=== PATIENT | male | born 1940 | race Caucasian/White ===

== ENCOUNTER 2017-09-12 19:49 | Emergency (ER) | payer MEDICARE, BC ==
[2017-09-12] MEDS ORDERED: 0.9 % SODIUM CHLORIDE 1,000 ML BAG IV ONE (19:57)
--- NOTE | 2017-09-12 20:00 | Emergency Department Record ---
History of Present Illness - General Chief Complaint: Fever Stated Complaint: FEVER Time Seen by Provider: 09/12/17 19:54 Source: Patient, EMS - History of Present Illness Initial Comments: Three days of fever, malaise, weakness with sore throat and some coughing. He is non-ambulatory at baseline and lives at home with his familly per EMS history. He has a history of COPD NOT on oxygen. 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 MD Complaint: Fever, Malaise, Weakness - Related Data Allergies Allergy/AdvReac Type Severity Reaction Status Date / Time No Known Drug Allergies Allergy Verified 05/01/16 16:17 Review of Systems Reviewed: No additional complaints except as noted below Constitutional: Reports: As per HPI. Denies: Chills, Fever, Malaise, Night sweats, Weakness, Weight change Eyes: Reports: As per HPI. Denies: Eye discharge, Eye pain, Photophobia, Vision change ENT: Reports: As per HPI. Denies: Congestion, Dental pain, Ear pain, Epistaxis , Hearing loss, Throat pain Respiratory: Reports: As per HPI. Denies: Cough, Dyspnea, Hemoptysis, Stridor, Wheezes Cardiovascular: Reports: As per HPI. Denies: Arrhythmia, Chest pain, Dyspnea on exertion, Edema, Murmurs, Orthopnea, Palpitations, Paroxysmal nocturnal dyspnea, Rheumatic Fever, Syncope Endocrine: Reports: As per HPI. Denies: Fatigue, Heat or cold intolerance, Polydipsia, Polyuria Gastrointestinal: Reports: As per HPI. Denies: Abdominal pain, Constipation, Diarrhea, Hematemesis, Hematochezia, Melena, Nausea, Vomiting Genitourinary: Reports: As per HPI. Denies: Dysuria, Frequency, Hematuria, Incontinence, Retention, Testicular pain, Testicular mass, Urgency Musculoskeletal: Reports: As per HPI. Denies: Arthralgia, Back pain, Gout, Joint swelling, Myalgia, Neck pain Skin: Reports: As per HPI. Denies: Bruising, Change in color, Change in hair/ nails, Lesions, Pruritus, Rash Neurological: Reports: As per HPI. Denies: Abnormal gait, Confusion, Headache, Numbness, Paresthesias, Seizure, Tingling, Tremors, Vertigo, Weakness Psychiatric: Reports: As per HPI. Denies: Anxiety, Auditory hallucinations, Depression, Homicidal thoughts, Suicidal thoughts, Visual hallucinations Hematological/Lymphatic: Reports: As per HPI. Denies: Anemia, Blood Clots, Easy bleeding, Easy bruising, Swollen glands Past Medical History - SOCIAL HISTORY Smoking Status: Former smoker Drug Use: None - RESPIRATORY Hx Bronchitis: Yes Hx COPD: Yes Hx Pneumonia: Yes - CARDIOVASCULAR Hx Cardio Disorders: No - NEURO Hx Neuro Disorders: Yes Hx CVA: Yes (2012, wheeel chair bound) Hx Parkinson's Disease: Yes Comment:: pt with trmmor - GI Hx GI Disorders: Yes Hx Reflux: Yes Hx Ulcer: Yes (recent admission) - Hx Genitourinary Disorders: No - ENDOCRINE Hx Endocrine Disorders: No - MUSCULOSKELETAL Hx Musculoskeletal Disorders: Yes Comment:: paralyzed from CVA - PSYCH Hx Psych Problems: No - HEMATOLOGY/ONCOLOGY Hx Hematology/Oncology Disorders: No Physical Exam - General General Appearance: Alert, Oriented x3, Cooperative, Mild distress (repeated coughing/ gargling while answering our questions, fine resting tremor, not new per EMS.) - Head Head exam: Normal inspection - Eye Eye exam: Normal appearance, PERRL, EOMI. negative: Nystagmus Pupils: Normal accommodation - ENT ENT exam: Normal exam, Mucous membranes moist, Normal external ear exam, Normal orophraynx, TM's normal bilaterally Ear exam: Normal external inspection. negative: External canal tenderness Nasal Exam: Normal inspection. negative: Discharge, Sinus tenderness Mouth exam: Normal external inspection, Tongue normal Teeth exam: Normal inspection. negative: Dental caries Throat exam: Normal inspection. negative: Tonsillar erythema, Tonsillar exudate - Neck Neck exam: Normal inspection, Full ROM. negative: Lymphadenopathy, Meningismus , Tenderness - Respiratory Respiratory exam: Decreased breath sounds, Prolonged expiratory, Rales (Fine rales at bases right greter than left.). negative: Respiratory distress - Cardiovascular Cardiovascular Exam: Normal rhythm, Normal heart sounds, Tachycardia - GI/Abdominal GI/Abdominal exam: Soft, Normal bowel sounds. negative: Tenderness - Rectal Rectal exam: Deferred - exam: Deferred - Extremities Extremities exam: Normal inspection, Full ROM, Normal capillary refill. negative: Calf tenderness, Pedal edema, Tenderness - Back Back exam: Reports: Normal inspection, Full ROM. Denies: CVA tenderness (R), CVA tenderness (L), Muscle spasm, Rash noted, Tenderness - Neurological Neurological exam: Alert, CN II-XII intact (mild facial droop, chronic), Motor sensory deficit (motor weakness on the left side with contracture of left hand requiring use of wheel chair chronically.), Normal gait, Oriented X3, Reflexes normal - Psychiatric Psychiatric exam: Normal affect, Normal mood - Skin Skin exam: Dry, Intact, Normal color, Warm Course - Reevaluation(s) Reevaluation #1: States he is feeling better after his nebulizer treatment. Given tylenol for a fever of 101.2. 09/12/17 21:07 Reevaluation #2: Patient is requesting [facility] for transfer. Patient has stable vitals, awaiting return call for molecular spectroscopist. 09/12/17 22:06 Reevaluation #3: Discussed with Dr. Morin Ortho Rn who accepts patient in transfer. Patient understands, and agrees. Told to not order flu panel as it will be repeated once he arrives at [facility]. 09/12/17 22:30 09/12/17 22:35 Medical Decision Making - Management Options MDM Management: Additional Work-up Planned (e.g. ADM/Transfer/OP Study) ( Transfer to [facility] for direct Admit) - Data Complexity MDM Data: Labs Ordered and/or Reviewed, X-Ray Ordered and/or Reviewed (CTA chest : A simple small embolus of the Rlower pulmonary branch. There is pneumonia in the posterior left upper and left lower lobes. There is a moderate left pleural effusion. Per radiologist.), EKG Ordered and/or Reviewed - Lab Data Result diagrams: 09/12/17 20:00 09/12/17 20:00 - EKG Data -: EKG Interpreted by Al EKG: No Acute Changes (PAC's, 97/min heart rate, prolonged QT 539) Disposition Disposition: Transfer Clinical Impression: Pulmonary embolus, right, Pneumonia of lower lobe of lung, Left upper lobe pneumonia, Pleural effusion, left, COPD (chronic obstructive pulmonary disease) , Fever Disposition: Acute Care Hospital Transfer Transfer To: [facility] Reason For Transfer: multi lobe pneumonia with PE, pleural effusion, COPD end stage, patient req Accepting Physician: Dr. Morin Time Discussed w/Accepting Physician: 22:34 Condition: (2) Stable Forms: Patient Portal Access Quality - Quality Measures Quality Measures: N/A - Blood Pressure Screening Does Patient Have Any of the Following: No Blood Pressure Classification: Hypertensive Reading Systolic Measurement: 196 Diastolic Measurement: 78 Screening for High Blood Pressure: < Pre-Hypertensive BP, F/U Documented > [ G8950] Pre-Hypertensive Follow-up Interventions: Follow-up with rescreen every year.
[2017-09-12 20:08] LABS: HEMATOCRIT 38.8 % (42.0-52.0); HEMOGLOBIN 12.4 gm/dl (14.0-18.0); MEAN CELL VOLUME 92.2 fl (81-97); MEAN CORPUSCULAR HEMOGLOBIN 29.4 pg (27-33); MEAN PLATELET VOLUME 8.9 fl (7.4-10.4); PLATELET COUNT 220 K/uL (130-400); RED BLOOD COUNT 4.21 M/uL (4.40-5.70); RED CELL DISTRIBUTION WIDTH 13.9 % (11.5-14.5); WHITE BLOOD COUNT W/O DIFF 10.7 K/uL (4.2-12.2)
[2017-09-12 20:20] LABS: BILIRUBIN,TOTAL 0.2 mg/dL (0.2-1.0); CREATININE 1.3 mg/dL (0.7-1.2)
[2017-09-12 20:21] LABS: INR 0.99; PROTHROMBIN TIME (PATIENT) 10.7 SECONDS (9.5-12.1); TOTAL PROTEIN 7.1 g/dL (6.6-8.7)
[2017-09-12 20:23] LABS: LACTIC ACID 1.3 mmol/L (0.5-2.2)
[2017-09-12 20:25] LABS: ALB/GLOB RATIO 1.1 (1.1-1.8); ALBUMIN 3.7 g/dL (4.0-5.0)
[2017-09-12 20:31] LABS: NTpro B-NATRIURETIC PEPTIDE 318.3 pg/mL (<125)
[2017-09-12] MEDS ORDERED: ACETAMINOPHEN 325 MG TAB PO ONE (20:35)
[2017-09-12] MEDS ORDERED: CEFTRIAXONE SODIUM 2 GM in 0.9 % SODIUM CHLORIDE 100ML 100 ML IVPB ONE (21:00)
[2017-09-12 21:27] LABS: URINE APPEARANCE CLEAR; URINE BILIRUBIN NEGATIVE (NEGATIVE); URINE BLOOD SMALL (NEGATIVE); URINE COLOR YELLOW; URINE GLUCOSE (UA) NEGATIVE (NEGATIVE); URINE KETONE NEGATIVE (NEGATIVE); URINE LEUKOCYTE ESTERASE NEGATIVE (NEGATIVE); URINE NITRITE NEGATIVE (NEGATIVE); URINE PROTEIN TRACE (NEGATIVE); URINE UROBILINOGEN 0.2 E.U./dL (0.20 - 1.00)
[2017-09-12 21:36] LABS: URINE BACTERIA NONE SEEN; URINE EPITHELIAL CELLS 0 - 2 (FEW); URINE WBC 0 - 2 (0-2/hpf)
[2017-09-12] MEDS ORDERED: AZITHROMYCIN 500 MG in 0.9 % SODIUM CHLORIDE 250ML 250 ML IVPB ONE (21:55)
[2017-09-12] MEDS ORDERED: HEPARIN SODIUM 1000 UNIT/1 ML 10ML VIAL IVP ONE (21:55)
[2017-09-12] MEDS ORDERED: HEPARIN SODIUM/D5W 25,000 UNITS/500 ML BAG IV SCH (22:30)
--- NOTE | 2017-09-13 08:22 | CT ANGIOGRAM REPORT ---
EXAM: CT ANGIOGRAM OF THE CHEST WITH CONTRAST AND WITH POST PROCESSING HISTORY: COUGH. ELEVATED D-DIMER. TECHNIQUE: Standard CT angiography of the chest was performed with post processing following the bolus administration of 100 ml of Omnipaque 350. Additional coronal and sagittal maximum intensity projection reformatted images were performed on an independent workstation under concurrent supervision. Comparison: 10/07/12. FINDINGS: There is a single small embolus within a right lower lobe pulmonary arterial branch. The remaining pulmonary arteries appear normal. Mild motion artifact is present. The heart is normal in size. Moderate coronary artery calcifications are present. Atherosclerotic calcifications are present within the aorta with no aneurysm or dissection. There is no mediastinal or hilar lymphadenopathy. A moderate sized left pleural effusion is present. There are focal areas of consolidation within the posterior left upper and lower lobes suggesting superimposed pneumonia. Emphysematous changes are present within both lungs. There are stable areas of pleural and parenchymal scarring at the lung apices, right greater than left. A few calcified pleural plaques are present at both apices. A few calcified granulomas are present within both lungs. Degenerative changes are present within the spine. The chest wall and axillary regions are normal. A 3.8 cm cyst is present within the left kidney. The remaining visualized portions of the upper abdomen are normal. IMPRESSION: 1. A SINGLE SMALL EMBOLUS IS PRESENT WITHIN A RIGHT LOWER LOBE PULMONARY ARTERIAL BRANCH. 2. MODERATE LEFT PLEURAL EFFUSION. 3. FOCAL AREAS OF CONSOLIDATION WITHIN THE POSTERIOR LEFT UPPER AND LOWER LOBES SUGGESTING ACUTE PNEUMONIA. 4. ADDITIONAL CHRONIC FINDINGS ABOVE. JOB NUMBER: [id number] MTDD
== END 2017-09-12 23:51 | disposition short-term general hospital (02) ==
LOC: ER 19:49
DX: I26.99 Other pulmonary embolism without acute cor pulmonale (principal); J18.1 Lobar pneumonia, unspecified organism; J91.8 Pleural effusion in other conditions classified elsewhere; J44.9 Chronic obstructive pulmonary disease, unspecified; R50.81 Fever presenting with conditions classified elsewhere; I69.354 Hemiplegia and hemiparesis following cerebral infarction affecting left non-dominant side; Z87.891 Personal history of nicotine dependence
CPT/HCPCS: 99285 ×2; 96365; 96375; 96361; 83605; 85610; 80053; 81001; 87880; 85379; 85027; 83880; 71275; 93005; 93010; Q9967; J0456; J7050

== ENCOUNTER 2018-03-12 17:59 | Emergency (ER) | payer MEDICARE ==
--- NOTE | 2018-03-12 18:12 | Emergency Department Record ---
History of Present Illness - General Chief complaint: Shortness of breath Stated complaint: SOB Time Seen by Provider: 03/12/18 18:08 Source: Patient Mode of Arrival: EMS Limitations: No limitations - History of Present Illness Initial comments: 77 yo male presents to ED for evaluation of difficulty swallowing for the past 3 days. Patient reports the sensation of a food bolus in the esophagus, but has been able to tolerate PO for the past 3 days. Patient denies fevers, chills , or recent illness. MD complaint: Difficulty swallowing Onset/Timin -: Days(s) Location: Throat Severity: Moderate Consistency: Intermittent Improves with: None Worsens with: None - Related Data Home Medications Medication Instructions Recorded Confirmed Last Taken Atorvastatin Calcium [Lipitor] 40 mg PO DAILY 03/12/18 03/12/18 Unknown Rivaroxaban [Xarelto] 20 mg PO DAILY 03/12/18 03/12/18 Unknown Previous Rx's Medication Instructions Recorded Prednisone [Prednisone 20Mg] 20 mg PO TID #12 tab 03/12/18 Allergies Allergy/AdvReac Type Severity Reaction Status Date / Time No Known Drug Allergies Allergy Unverified 10/18/17 13:52 Travel Screening - Travel/Exposure Within Last 30 Days Have you traveled within the last 30 days?: No - Travel/Exposure Within Last Year Have you traveled outside the [place] in the last year?: No - Additonal Travel Details Have you been exposed to anyone with a communicable illness?: No - Travel Symptoms Symptom Screening: None Review of Systems Constitutional: Denies: Chills, Fever, Malaise, Night sweats Eyes: Denies: Eye discharge, Eye pain ENT: Reports: Throat pain. Denies: Congestion, Ear pain, Epistaxis Respiratory: Denies: Cough, Dyspnea Cardiovascular: Denies: Arrhythmia, Chest pain Endocrine: Denies: Fatigue, Heat or cold intolerance Gastrointestinal: Denies: Abdominal pain, Nausea, Vomiting Genitourinary: Denies: Incontinence, Retention Musculoskeletal: Denies: Arthralgia, Back pain Skin: Denies: Bruising, Change in color Neurological: Denies: Confusion, Headache Psychiatric: Denies: Anxiety Hematological/Lymphatic: Denies: Anemia, Blood Clots Past Medical History - SOCIAL HISTORY Smoking Status: Former smoker Alcohol Use: None Drug Use: None - RESPIRATORY Hx Respiratory Disorders: No Hx Bronchitis: Yes Hx COPD: Yes (end stage) Hx Pneumonia: Yes - CARDIOVASCULAR Hx Cardio Disorders: No - NEURO Hx Neuro Disorders: Yes Hx CVA: Yes (2012, wheeel chair bound) Hx Parkinson's Disease: Yes Comment:: pt with trmmor - GI Hx GI Disorders: Yes Hx Reflux: Yes Hx Ulcer: Yes (recent admission) - Hx Genitourinary Disorders: No - ENDOCRINE Hx Endocrine Disorders: No - MUSCULOSKELETAL Hx Musculoskeletal Disorders: Yes Comment:: paralyzed from CVA - PSYCH Hx Psych Problems: No - HEMATOLOGY/ONCOLOGY Hx Hematology/Oncology Disorders: No Family Medical History Any Significant Family History?: No Physical Exam - General General Appearance: Alert, Oriented x3, Cooperative, Moderate distress, Other ( cachetic appearing, tachypnic due to end stage COPD) Limitations: No limitations - Head Head exam: Atraumatic, Normocephalic, Normal inspection Head exam detail: negative: Abrasion, Contusion, Churchill's sign, General tenderness, Hematoma, Laceration - Eye Eye exam: Normal appearance. negative: Conjunctival injection, Periorbital swelling, Periorbital tenderness, Scleral icterus - ENT Ear exam: negative: Auricular hematoma, Auricular trauma Nasal Exam: negative: Active bleeding, Discharge, Dried blood, Foreign body Mouth exam: negative: Drooling, Laceration, Muffled voice, Tongue elevation - Neck Neck exam: Normal inspection. negative: Meningismus, Tenderness - Respiratory Respiratory exam: Normal lung sounds bilaterally. negative: Respiratory distress, Rhonchi, Stridor, Wheezes - Cardiovascular Cardiovascular Exam: Regular rate, Normal rhythm, Normal heart sounds - GI/Abdominal GI/Abdominal exam: Soft. negative: Rebound, Rigid, Tenderness - Rectal Rectal exam: Deferred - exam: Deferred - Extremities Extremities exam: Normal inspection. negative: Pedal edema, Tenderness - Back Back exam: Denies: CVA tenderness (R), CVA tenderness (L) - Neurological Neurological exam: Alert, Oriented X3 - Psychiatric Psychiatric exam: Normal affect, Normal mood - Skin Skin exam: Normal color. negative: Abrasion Type of lesion: negative: abrasion Course Vital Signs 03/12/18 18:01 Temperature 98.4 F Pulse Rate 94 H Respiratory 28 H Rate Blood Pressure 191/93 Pulse Ox 100 - Reevaluation(s) Reevaluation #1: 03/12/18 18:34 Case was discussed with the patient's son, reports that EMS was called for increasing KERI over the past 2 days likely related to "the heat", reports similar symptoms previously. Patient's son reports that the patient's dysphagia and "gagging" have been present for months and that he is tolerating PO well without difficulty. Patient was sent in for evaluation of likely COPD exacerbation. Will initiate treatment for KERI likely related to COPD. Reevaluation #2: 03/12/18 18:55 EKG: NSR with PACs 87 Normal axis, irregular R-R intervals due to PACs Nonspecific ST-T wave changes Reevaluation #3: 03/12/18 19:07 Laboratory studies were reviewed: Hgb 9.7 (previous 11.3 10/11)) HCT 32.3 Labs are otherwise grossly unremarkable for an acute process. Patient reassessed following duoneb, reports improvement in his symptoms. Reevaluation #4: 03/12/18 19:31 Patient reassessed, reports that he is feeling about 50% better, reports that he is ready to go home. CXR result pending. Reevaluation #5: 03/12/18 19:47 CXR: No acute infiltrate Small left pleural effusion Atelectasis L>R 03/12/18 19:53 Patient was reassessed and updated on all results thus far, reports that he is feeling well and wants to go home at this time. Biox 99% on 2 L NC, appears stable for discharge on Prednisone as directed. Medical Decision Making - Lab Data Result diagrams: 03/12/18 17:53 03/12/18 17:53 Disposition Disposition: Discharge Clinical Impression: COPD exacerbation Disposition: Home, Self-Care Condition: (2) Stable Instructions: COPD (Chronic Obstructive Pulmonary Disease) (ED) Additional Instructions: Return to ED if your symptoms worsen or if you have any concerns. Prednisone as directed. Follow-up with your family doctor in 1-3 days as directed. Prescriptions: Prednisone [Prednisone 20Mg] 20 mg PO TID #12 tab Forms: Patient Portal Access Time of Disposition: 19:55 Quality - Quality Measures Quality Measures: N/A - Blood Pressure Screening Does Patient Have Any of the Following: Active Dx of HTN Blood Pressure Classification: Hypertensive Reading Systolic Measurement: 191 Diastolic Measurement: 93 Screening for High Blood Pressure: Patient Exclusion, Hx of HTN [G9744]
[2018-03-12] MEDS ORDERED: IPRATROPIUM/ALBUTEROL (0.5MG/3MG) NEB INH ONE (18:33)
[2018-03-12] MEDS ORDERED: METHYLPREDNISOLONE PF 125MG/VIAL IVP ONE (18:33)
[2018-03-12 18:42] LABS: BASO % 0.3 % (0-6); EOS % 1.7 % (0-6); GRAN % 75.4 % (47-80); HEMATOCRIT 32.3 % (42.0-52.0); HEMOGLOBIN 9.7 gm/dl (14.0-18.0); LYMPH % 15.5 % (16-45); MEAN CELL VOLUME 83.5 fl (81-97); MEAN PLATELET VOLUME 9.2 fl (7.4-10.4); MONO % 7.1 % (0-9); PLATELET COUNT 331 K/uL (130-400); RED BLOOD COUNT 3.87 M/uL (4.40-5.70); WHITE BLOOD COUNT W/O DIFF 7.1 K/uL (4.2-12.2)
[2018-03-12 18:56] LABS: BLOOD UREA NITROGEN 23 mg/dL (8-23)
[2018-03-12 18:57] LABS: CREATININE 1.2 mg/dL (0.7-1.2); EST GLOMERULAR FILTRATION RATE > 60 mL/min; TOTAL PROTEIN 7.2 g/dL (6.6-8.7)
[2018-03-12 18:59] LABS: GLUCOSE,RANDOM 92 mg/dL (74-109)
[2018-03-12 19:02] LABS: ALB/GLOB RATIO 1.3 (1.1-1.8); ALKALINE PHOSPHATASE 116 U/L (40-129); ALT/SGPT 9 U/L (<41); AST/SGOT 17 U/L (10.0-50.0)
--- NOTE | 2018-03-14 08:42 | RADIOLOGY REPORT ---
EXAM: CHEST, TWO VIEWS HISTORY: DIFFICULTY BREATHING AND WET COUGH FOR THE PAST WEEK. TECHNIQUE: AP and lateral views of the chest were obtained. Comparison: 09/12/17 and 05/01/16. FINDINGS: The heart is normal in size. There is calcification of the aorta. The mediastinum and pulmonary vasculature are normal. The lungs are hyperinflated consistent with COPD. There is a small left pleural effusion with associated left basilar atelectasis. Mild atelectasis is also present at the right lung base. No definite acute infiltrates are identified. There are no acute osseous abnormalities. IMPRESSION: 1. COPD. 2. SMALL LEFT PLEURAL EFFUSION WITH ASSOCIATED LEFT BASILAR ATELECTASIS. 3. MILD RIGHT BASILAR ATELECTASIS. JOB NUMBER: [id number] MTDD
== END 2018-03-12 21:06 | disposition home or self-care (01) ==
LOC: ER 17:59
DX: J44.1 Chronic obstructive pulmonary disease with (acute) exacerbation (principal); I10 Essential (primary) hypertension; Z87.891 Personal history of nicotine dependence; I69.869 Other paralytic syndrome following other cerebrovascular disease affecting unspecified side
CPT/HCPCS: 71046; 80053; 85025; 93005; 93010; 94640; 96374; 99284; J2930

== ENCOUNTER 2018-03-20 19:43 | Emergency (ER) | payer MEDICARE ==
[2018-03-20] MEDS ORDERED: IPRATROPIUM/ALBUTEROL (0.5MG/3MG) NEB INH ONE (20:07)
[2018-03-20] MEDS ORDERED: METHYLPREDNISOLONE PF 125MG/VIAL IVP ONE (20:09)
[2018-03-20 20:23] LABS: BASO % 0.1 % (0-6); EOS % 2.8 % (0-6); GRAN % 74.4 % (47-80); HEMATOCRIT 33.2 % (42.0-52.0); HEMOGLOBIN 10.4 gm/dl (14.0-18.0); LYMPH % 15.2 % (16-45); MEAN CORPUSCULAR HGB CONC 31.3 g/dl (32-36); MONO % 7.5 % (0-9); PLATELET COUNT 299 K/uL (130-400); WHITE BLOOD COUNT W/O DIFF 7.8 K/uL (4.2-12.2)
[2018-03-20 20:25] LABS: MEAN CORPUSCULAR HEMOGLOBIN 25.3 pg (27-33)
[2018-03-20 20:39] LABS: BLOOD UREA NITROGEN 26 mg/dL (8-23); CREATININE 1.2 mg/dL (0.7-1.2); EST GLOMERULAR FILTRATION RATE > 60 mL/min
[2018-03-20 20:42] LABS: GLUCOSE,RANDOM 109 mg/dL (74-109)
--- NOTE | 2018-03-20 21:56 | Emergency Department Record ---
History of Present Illness - General Chief Complaint: Shortness of breath Stated Complaint: KERI Time Seen by Provider: 03/20/18 19:57 Source: Patient Mode of Arrival: Ambulatory Limitations: No limitations - History of Present Illness Initial Comments: pt has been coughing and choking w difficulty swallowing. he feels like he has something caught in his throat and is gagging a lot. he is able to swallow water. he feels sob. pt has hx of a stroke which has left him bedridden w l sided paralysis Complaint: Shortness of breath Onset/Timin -: Hour(s) Consistency: Constant Improves With: Nothing Known History Of: COPD, Other (pe) Associated Symptoms: Cough - Related Data Allergies Allergy/AdvReac Type Severity Reaction Status Date / Time No Known Drug Allergies Allergy Unverified 10/18/17 13:52 Travel Screening - Travel/Exposure Within Last 30 Days Have you traveled within the last 30 days?: No - Travel/Exposure Within Last Year Have you traveled outside the [place] in the last year?: No - Additonal Travel Details Have you been exposed to anyone with a communicable illness?: No - Travel Symptoms Symptom Screening: None Review of Systems Reviewed: No additional complaints except as noted below Constitutional: Reports: As per HPI. Denies: Chills, Fever, Malaise, Night sweats, Weakness, Weight change Eyes: Reports: As per HPI. Denies: Eye discharge, Eye pain, Photophobia, Vision change ENT: Reports: As per HPI. Denies: Congestion, Dental pain, Ear pain, Epistaxis , Hearing loss, Throat pain Respiratory: Reports: As per HPI, Cough, Dyspnea. Denies: Hemoptysis, Stridor, Wheezes Cardiovascular: Reports: As per HPI. Denies: Arrhythmia, Chest pain, Dyspnea on exertion, Edema, Murmurs, Orthopnea, Palpitations, Paroxysmal nocturnal dyspnea, Rheumatic Fever, Syncope Endocrine: Reports: As per HPI. Denies: Fatigue, Heat or cold intolerance, Polydipsia, Polyuria Gastrointestinal: Reports: As per HPI. Denies: Abdominal pain, Constipation, Diarrhea, Hematemesis, Hematochezia, Melena, Nausea, Vomiting Genitourinary: Reports: As per HPI. Denies: Dysuria, Frequency, Hematuria, Incontinence, Retention, Testicular pain, Testicular mass, Urgency Musculoskeletal: Reports: As per HPI. Denies: Arthralgia, Back pain, Gout, Joint swelling, Myalgia, Neck pain Skin: Reports: As per HPI. Denies: Bruising, Change in color, Change in hair/ nails, Lesions, Pruritus, Rash Neurological: Reports: As per HPI. Denies: Abnormal gait, Confusion, Headache, Numbness, Paresthesias, Seizure, Tingling, Tremors, Vertigo, Weakness Psychiatric: Reports: As per HPI. Denies: Anxiety, Auditory hallucinations, Depression, Homicidal thoughts, Suicidal thoughts, Visual hallucinations Hematological/Lymphatic: Reports: As per HPI. Denies: Anemia, Blood Clots, Easy bleeding, Easy bruising, Swollen glands Past Medical History - SOCIAL HISTORY Smoking Status: Former smoker Alcohol Use: None Drug Use: None - RESPIRATORY Hx Respiratory Disorders: No Hx Bronchitis: Yes Hx COPD: Yes (end stage) Hx Pneumonia: Yes - CARDIOVASCULAR Hx Cardio Disorders: No - NEURO Hx Neuro Disorders: Yes Hx CVA: Yes (2012, wheeel chair bound) Hx Parkinson's Disease: Yes Comment:: pt with trmmor - GI Hx GI Disorders: Yes Hx Reflux: Yes Hx Ulcer: Yes (recent admission) - Hx Genitourinary Disorders: No - ENDOCRINE Hx Endocrine Disorders: No - MUSCULOSKELETAL Hx Musculoskeletal Disorders: Yes Comment:: paralyzed from CVA left sided weakness. - PSYCH Hx Psych Problems: No - HEMATOLOGY/ONCOLOGY Hx Hematology/Oncology Disorders: No Family Medical History Any Significant Family History?: No Physical Exam - General General Appearance: Alert, Oriented x3, Cooperative, Mild distress - Head Head exam: Normal inspection - Eye Eye exam: Normal appearance, PERRL, EOMI Pupils: Normal accommodation - ENT ENT exam: Normal exam, Mucous membranes moist, Normal external ear exam, Normal orophraynx Ear exam: Normal external inspection. negative: External canal tenderness Nasal Exam: Normal inspection. negative: Discharge, Sinus tenderness Mouth exam: Normal external inspection, Tongue normal Teeth exam: Normal inspection. negative: Dental caries Throat exam: Normal inspection. negative: Tonsillar erythema, Tonsillar exudate - Neck Neck exam: Normal inspection, Full ROM. negative: Tenderness - Respiratory Respiratory exam: Normal lung sounds bilaterally. negative: Respiratory distress - Cardiovascular Cardiovascular Exam: Normal rhythm, Normal heart sounds, Tachycardia - GI/Abdominal GI/Abdominal exam: Soft, Normal bowel sounds. negative: Tenderness - Rectal Rectal exam: Deferred - exam: Deferred - Extremities Extremities exam: Normal inspection, Full ROM, Normal capillary refill. negative: Tenderness - Back Back exam: Reports: Normal inspection, Full ROM. Denies: Muscle spasm, Rash noted, Tenderness - Neurological Neurological exam: Alert, CN II-XII intact, Normal gait, Oriented X3 - Psychiatric Psychiatric exam: Normal affect, Normal mood - Skin Skin exam: Dry, Intact, Normal color, Warm Course Vital Signs 03/20/18 03/20/18 03/20/18 19:45 20:19 20:23 Temperature 98.0 F Pulse Rate 106 H 96 H Pulse Rate [ 110 H Product Management Manager ] Respiratory 22 20 28 H Rate Blood Pressure 135/89 Blood Pressure [Right Arm] Pulse Ox 98 99 97 03/20/18 03/20/18 03/20/18 20:25 20:27 21:08 Temperature Pulse Rate 100 H 96 H Pulse Rate [ 101 H Product Management Manager ] Respiratory 32 H 28 H 22 Rate Blood Pressure Blood Pressure 169/80 [Right Arm] Pulse Ox 99 99 97 03/20/18 21:47 Temperature Pulse Rate Pulse Rate [ 91 H Product Management Manager ] Respiratory 24 Rate Blood Pressure Blood Pressure 174/104 [Right Arm] Pulse Ox 100 - Reevaluation(s) Reevaluation #1: 03/20/18 22:19 ct brain old strokes. ct of chest no pe, l pleural effusion Reevaluation #2: 03/20/18 22:23 pt feels better Medical Decision Making - Lab Data Result diagrams: 03/20/18 20:15 03/20/18 20:15 Lab Results 03/20/18 03/20/18 03/20/18 Range/Units 20:15 20:15 20:15 WBC 7.8 (4.2-12.2) K/uL RBC 4.10 L (4.40-5.70) M/uL Hgb 10.4 L (14.0-18.0) gm/dl Hct 33.2 L (42.0-52.0) % MCV 81.0 (81-97) fl MCH 25.3 L (27-33) pg MCHC 31.3 L (32-36) g/dl RDW 15.0 H (11.5-14.5) % Plt Count 299 (130-400) K/uL MPV 9.0 (7.4-10.4) fl Gran % 74.4 (47-80) % Lymphocytes % 15.2 L (16-45) % Monocytes % 7.5 (0-9) % Eosinophils % 2.8 (0-6) % Basophils % 0.1 (0-6) % D-Dimer 2.05 H (0-0.59) mg/L FEU Sodium 143 (136-145) mmol/L Potassium 4.4 (3.4-4.5) mmol/L Chloride 98 (98-107) mmol/L Carbon Dioxide 29.0 (22-29) mmol/L Anion Gap 16.0 (7-16) BUN 26 H (8-23) mg/dL Creatinine 1.2 (0.7-1.2) mg/dL Estimated GFR > 60 mL/min Random Glucose 109 (74-109) mg/dL Calcium 8.9 (8.8-10.2) mg/dL Disposition Disposition: Discharge Clinical Impression: SOB (shortness of breath) Disposition: Home, Self-Care Condition: (1) Good Instructions: Dyspnea (ED) Additional Instructions: follow up with family doctor. have EGD done [scope] done. return sooner if worse Forms: Patient Portal Access Quality - Quality Measures Quality Measures: N/A - Blood Pressure Screening Does Patient Have Any of the Following: No Blood Pressure Classification: Pre-Hypertensive BP Reading Systolic Measurement: 135 Diastolic Measurement: 89 Screening for High Blood Pressure: < Pre-Hypertensive BP, F/U Documented > [ G8950] Pre-Hypertensive Follow-up Interventions: Follow-up with rescreen every year.
== END 2018-03-20 23:58 | disposition home or self-care (01) ==
LOC: ER 19:43
DX: R06.02 Shortness of breath (principal); R13.10 Dysphagia, unspecified; R79.89 Other specified abnormal findings of blood chemistry; J44.9 Chronic obstructive pulmonary disease, unspecified; I69.354 Hemiplegia and hemiparesis following cerebral infarction affecting left non-dominant side; Z87.891 Personal history of nicotine dependence
CPT/HCPCS: 70450; 71275; 80048; 85025; 85379; 94640; 96374; 99284; J2930